=== PATIENT | female | born 1960 | race Caucasian/White ===

== ENCOUNTER 2018-10-13 11:21 | Day surgery (SDC) ==
--- NOTE | 2018-10-06 10:17 | EKG Report ---
Test Performed on : 10/06/2018 10:09:22 AM Test Reason : pat Blood Pressure : / mmHG Vent. Rate : 075 BPM Atrial Rate : 075 BPM P-R Int : 118 ms QRS Dur : 082 ms QT Int : 402 ms P-R-T Axes : 029 056 056 degrees QTc Int : 448 ms Normal sinus rhythm. Nonspecific ST abnormality Abnormal ECG When compared with ECG of 05-DEC-2011 16:01, No significant change was found Unconfirmed Result
[2018-10-06 10:19] LABS: HEMATOCRIT 39.7 % (37.0-47.0); HEMOGLOBIN 13.2 g/dL (12.0-16.0); MCH 31.2 PG (27-31); MCHC 33.2 g/dL (33-37); MCV 93.9 FL (81-99); MPV 8.9 FL (7.4-10.4); RBC 4.23 XMIL (4.2-5.4); RDW 13.8 % (11.5-14.5); WBC 6.08 X1000 (4.8-10.8)
[2018-10-06 10:32] LABS: INR 0.92; PROTIME 13.1 Seconds (11.0-16.0)
[2018-10-06 10:48] LABS: AGAP 10; BUN 15 mg/dL (8-22); CALCIUM 9.8 mg/dL (8.8-10.2); CHLORIDE 101 mmol/L (98-107); COSMO 283; CREATININE 0.8 mg/dL (0.5-0.9); ESTIMATED GFR > 60; GLUCOSE 88 mg/dL (70-104); POTASSIUM 3.2 mmol/L (3.5-5.1); SODIUM 142 mmol/L (136-145); TCO2 31 mmol/L (25-35)
[2018-10-13] MEDS: D5 1/2 NS 1,000 ML IV SCH ×2 (00:30→20:56)
[2018-10-13] MEDS ORDERED: KEFZOL 2 GM/D5W 2 GM/50 ML IVPB ONE (11:50)
[2018-10-13] MEDS ORDERED: REGLAN ONE (11:50)
[2018-10-13] MEDS ORDERED: LR 500 ML ONE (11:50)
[2018-10-13] MEDS ORDERED: PEPCID ONE (11:50)
[2018-10-13] MEDS ORDERED: DIPRIVAN 1% ONE (12:04)
[2018-10-13] MEDS ORDERED: SODIUM CHLORIDE 0.9% ONE (12:46)
[2018-10-13] MEDS ORDERED: SENSORCAINE 0.5%-EPI 1:200,000 ONE (12:46)
[2018-10-13] MEDS ORDERED: METROGEL-VAGINAL 0.75% GEL ONE (12:46)
[2018-10-13] MEDS ORDERED: VERSED ONE (13:09)
[2018-10-13] MEDS ORDERED: NEOSPORIN G.U. IRRIGANT ONE (13:09)
[2018-10-13] MEDS ORDERED: BACITRACIN ONE (13:09)
[2018-10-13] MEDS ORDERED: XYLOCAINE-MPF 2% ONE (13:11)
[2018-10-13] MEDS ORDERED: QUELICIN (DOSE) ONE ×2 (13:11→13:35)
[2018-10-13] MEDS ORDERED: DILAUDID ONE (13:30)
[2018-10-13] MEDS ORDERED: ZOFRAN ONE (13:30)
[2018-10-13] MEDS ORDERED: DECADRON ONE (13:30)
[2018-10-13] MEDS ORDERED: TORADOL ONE (13:30)
[2018-10-13 15:37] LABS: URINE SOURCE CATH
[2018-10-13] MEDS ORDERED: MORPHINE IV PRN (15:43)
[2018-10-13 15:44] LABS: BILIRUBIN URINE NEGATIVE (NEGATIVE); BLOOD URINE NEGATIVE (NEGATIVE); COLOR YELLOW; GLUCOSE URINE NEGATIVE (NEGATIVE); KETONE URINE TRACE mg/dL (NEGATIVE); LEUKOCYTES URINE NEGATIVE (NEGATIVE); NITRITE URINE NEGATIVE (NEGATIVE); PROTEIN URINE 30 mg/dL (NEGATIVE); SP GRAVITY URINE > 1.050; TURBIDITY URINE CLEAR (CLEAR); UR EPITHELIAL CELLS <10 /HPF (<10); URINE BACTERIA NEGATIVE /HPF; URINE WBC <10 /HPF (<10); UROBILINOGEN URINE 2 mg/dL (NORMAL)
[2018-10-13] MEDS ORDERED: D5 1/2 NS 1,000 ML ONE (15:45)
[2018-10-13] MEDS ORDERED: NORCO-7.5 PO PRN (15:45)
[2018-10-13] MEDS ORDERED: NORCO-10 PO PRN (15:45)
[2018-10-13] MEDS ORDERED: SODIUM CHLORIDE 0.9% INJ PRN (15:45)
[2018-10-13] MEDS ORDERED: OXY IR PO PRN ×2 (15:45)
[2018-10-13] MEDS ORDERED: ZOFRAN IV PRN (15:45)
[2018-10-13] MEDS ORDERED: BENADRYL IV PRN (15:45)
[2018-10-13] MEDS ORDERED: LABETALOL IV PRN (15:45)
[2018-10-13] MEDS ORDERED: NORCO-5 PO PRN (15:45)
[2018-10-13] MEDS ORDERED: PHENERGAN IV PRN (15:45)
[2018-10-13] MEDS ORDERED: OFIRMEV 1000 MG/ISOTONIC SOLN 1,000 MG/100 ML BOTTLE IV PRN (15:45)
[2018-10-13] MEDS ORDERED: PHENERGAN PO PRN (15:45)
[2018-10-13] MEDS ORDERED: PHENERGAN PR PRN (15:45)
[2018-10-13] MEDS ORDERED: DILAUDID IV PRN (15:45)
[2018-10-13] MEDS ORDERED: BENADRYL LIQUID PO PRN (15:45)
[2018-10-13] MEDS: OFIRMEV 1000 MG/ISOTONIC SOLN 1,000 MG/100 ML BOTTLE ONE ×2 (15:45→20:51)
[2018-10-13] MEDS ORDERED: FLEXERIL PO PRN (18:59)
[2018-10-13] MEDS: COLACE PO SCH (20:56)
[2018-10-13] MEDS: KEFZOL 2 GM/D5W 2 GM/50 ML IVPB IV SCH (20:56)
[2018-10-13] MEDS: PERIDEX MT SCH (20:56)
[2018-10-14] MEDS: KEFZOL 2 GM/D5W 2 GM/50 ML IVPB IV SCH (05:21)
[2018-10-14 06:34] LABS: AGAP 11; BUN 14 mg/dL (8-22); CALCIUM 8.9 mg/dL (8.8-10.2); CHLORIDE 102 mmol/L (98-107); COSMO 276; CREATININE 0.7 mg/dL (0.5-0.9); ESTIMATED GFR > 60; GLUCOSE 130 mg/dL (70-104); POTASSIUM 3.6 mmol/L (3.5-5.1); SODIUM 137 mmol/L (136-145); TCO2 24 mmol/L (25-35)
[2018-10-14 06:39] LABS: HEMATOCRIT 35.4 % (37.0-47.0); HEMOGLOBIN 11.7 g/dL (12.0-16.0); MCH 31.5 PG (27-31); MCHC 33.1 g/dL (33-37); MCV 95.2 FL (81-99); MPV 9.6 FL (7.4-10.4); RBC 3.72 XMIL (4.2-5.4); RDW 13.7 % (11.5-14.5); WBC 13.14 X1000 (4.8-10.8)
[2018-10-14 08:29] VITALS: BP 111/65
[2018-10-14] MEDS ORDERED: VASOTEC PO SCH (09:00)
[2018-10-14] MEDS ORDERED: CELEXA PO SCH (09:00)
[2018-10-14] MEDS ORDERED: CYMBALTA PO SCH (09:00)
[2018-10-14] MEDS ORDERED: ZANTAC PO SCH (09:00)
[2018-10-14] MEDS: PERIDEX MT SCH (09:09)
[2018-10-14] MEDS: COLACE PO SCH (09:09)
--- NOTE | 2018-11-17 08:38 | OPERATIVE NOTE ---
PROCEDURE DATE: 10/13/2018 SURGEON: Alex Murillo MD PREOPERATIVE DIAGNOSES: 1. Cystocele. 2. Rectocele. 3. Vaginal vault prolapse. 4. Stress urinary incontinence. PROCEDURE: 1. Cystocele repair with Restorelle mesh. 2. Extraperitoneal vaginal vault suspension. 3. Rectocele repair with the Restorelle mesh. 4. Placement of Altis mid urethral sling. 5. Cystourethroscopy x2. INDICATIONS: A 58-year-old female who has had hysterectomy. She reports significant symptomatic prolapse. She was found to have both cystocele and rectocele. She reports associated stress urinary incontinence. She was counseled extensively on mesh assisted repair with the risks involving mesh including, but not limited to erosion of part or all of the mesh as well as mesh infection, which could lead to the removal of parts or entire mesh. She voiced understanding and wants to proceed. She was also counseled on mid urethral sling and the possibility of retention as well as dyspareunia, failure to correct incontinence and need for additional revisions. FINDINGS: Cystourethroscopy was performed after cystocele repair without evidence of bladder or urethral injury. Cystourethroscopy was performed after sling placement without evidence of urethral or bladder injury and bilateral clear ureteral efflux. Digital rectal examination performed after rectocele repair without evidence of rectal injury. DESCRIPTION OF OPERATION: After obtaining informed consent, patient was brought to the operating room. Perioperative antibiotics and general endotracheal anesthesia were administered. She was placed in lithotomy position with her lower extremities appropriately padded. She was prepped and draped Omnipaque sterile fashion. A 16-English Roman catheter was used to drain the bladder and a hemostat was used to clamp the catheter off. We used a colorectal retractor for exposure. We began by placing an Allis clamp at the level of vaginal cuff and the bladder neck as evident by gentle tugging on the Roman balloon. We then used 40 mL of 0.5% lidocaine with epinephrine diluted 50:50 with normal saline to perform hydrodissection as well as local anesthetic. Once that was done, a 15 blade was used to make an incision in the vaginal mucosa. We then dissected through the entire mucosal thickness the anterior vaginal wall off the bladder. Surgeon's finger was then used to free the bladder. Once the bladder was free laterally, I was able to palpate the patient's sacrospinous ligament on either side. The surrounding tissue was swept wiped off until the ligament could be clearly felt for approximately 3 cm medially on each side. Then careful dissection with Metzenbaum scissors was used to free up the bladder all the way to the level of bladder neck as again evident by tugging on the Roman balloon and being able to palpate it. We dissected to the vaginal apex, followed by introduction of 2-0 PDS suture x2 at the level of vaginal cuff. Those were secured with hemostats. We then copiously irrigated the wound. Restoril mesh was then prepared at the back table. I soaked it with normal saline. We then trimmed it to accommodate patient's anatomy. A StatTack device was used to introduce the posterior arms of the mesh through sacrospinous ligament approximately 2 cm medial to the ischial spine. This was done bilaterally. We then placed the proximal arms of the mesh through the obturator membrane with the StatTack device as well on other site. The previously placed PDS sutures through the vaginal cuff were then used to thread through the posterior midline aspect of the mesh. 2-0 PDS suture x2 were also placed at the level of bladder neck and secured the anterior midline aspect of the mesh. Those sutures were tied down. Mesh was inspected and appeared to be lying flat without being overly redundant. Following that, we removed Roman catheter and performed cystourethroscopy with 70-degree lens. The urethra was unremarkable in appearance. The bladder showed no evidence of injury. No mucosal lesions. No excessive trabeculations, diverticula noted. I was able to see clear efflux from bilateral ureteral orifices. We then removed the cystoscope and reintroduced the Roman catheter. The wound was copiously irrigated and 2-0 Vicryl suture was used to close the vaginal epithelium in a running fashion locking every other suture. Attention was then turned to the posterior repair. 20 mL of the same local anesthetic was used for hydrodissection. This was followed by incision in the midline with 15 blade and dissection of the posterior vaginal wall from the rectum. The surgeon's finger was used again on both sides to identify sacrospinous ligament. I was able to fill previously placed arms of anterior Restoril mesh. Posteriorly, we dissected to the level of the perineal body using Metzenbaum scissors. Once that was done, the StatTack device was used again to secure another piece of Restoril mesh, which was soaked in saline on the back table and trimmed to accommodate patient's anatomy. I placed those arms of the mesh even more medial than the anterior parts. Gentle tugging on them confirmed the proper position. I then plicated the mesh even further and used interrupted 2-0 Vicryl sutures to affix the edges of the mesh to the inner aspect of the vaginal wall all the way to over the perineal body. This appeared to reduce the rectocele nicely. I then used a 2nd glove and performed digital rectal examination, without evidence of rectal injury palpable or suture palpable. Once that was done, we copiously irrigated the wound and 2-0 Vicryl suture was used in an interrupted fashion to close the posterior incision. Attention was then turned to placement of mid urethral sling. 10 mL of the same local anesthetic was used at the level of mid urethra, followed by a 3-cm incision made with a 15 blade, followed by sharp dissection with Metzenbaum scissors over the level of the mid urethra until I was able to palpate the obturator membrane with my small finger. We then opened the sling and prepared it on the back table by soaking it in normal saline. Helical trocars were used per flight operations specialist's suggested instructions in an inside-out fashion to place the 1 arm of the sling through the obturator membrane and then place the 2nd arm of the sling through the obturator membrane as well. Tensioning suture was used to achieve appropriate tightening. The sling appeared to lie flat without kinking or redundancy over the level of the mid urethra. Roman catheter was then again removed and cystourethroscopy was performed with 70-degree lens. Urethra was unremarkable in appearance. The bladder showed no evidence of injury, no evidence of sling parts and bilateral clear ureteral efflux. I then copiously irrigated the incision and closed it in a running fashion with a 3-0 Vicryl suture, locking every other suture. Once that was done, we used Flagyl coated packing for the vagina. Roman catheter was placed to gravity drainage. She was extubated and taken to PACU for further recovery. ESTIMATED BLOOD LOSS: 30 mL. COMPLICATIONS: None. DISPOSITION: To PACU and subsequently floor for observation with Roman catheter to gravity drainage and vaginal packing, both of which would be removed the next day. cc: Alex Murillo MD MTDD
== END 2018-10-14 10:19 | disposition home or self-care (01) ==
LOC: PAT 11:21 → 4N 11:21 → PAT 10-14 10:19
PROVIDERS: ATTEND Urology
CPT/HCPCS: 80048; 81001; 82607; 85027; 85610; 85730; 93005; 93010; 94640; 94760; A9270; C1771; J0131; J0330; J0690; J1100; J1170; J1885; J2250; J2405; J7120